=== PATIENT | female | born 2000 | race Caucasian/White ===

== ENCOUNTER 2021-03-05 00:02 | Observation (INO) | payer OTHER, MEDICAID ==
[~2021-03-05] VITALS: Ht 157.5 cm; Wt 76.8 kg
--- NOTE | ~2021-03-05 | CON ---
[address] [address] CONSULTATION Name: JJ GERONIMO Room: [address] Keke Morales#: [id number] Admission: 03/05/21 Attend Phys: Jammie Umana Discharge: 03/05/21 Date of : [birth year] Report #: [id number] THIS REPORT FOR: cc: FAM - No family physician/PCP FAM - No family physician/PCP Ziggy Sy MD ~ DATE OF CONSULTATION: 03/05/2021 HISTORY OF PRESENT ILLNESS: This is a 20-year-old female patient who was evaluated by me for seizure. The patient is difficult to evaluate because it looks like she keeps changing her history especially in relation to her alcohol and drug abuse. The history she gave me is that she drinks alcohol on a regular basis. From last 3-4 months, she drank at least half a pint of hard liquor every day. Then, she did not drink any alcohol on Saturday and . When I asked her why she did not do any alcohol and dosage, she did not give me an answer. On , she said she was at home. She was with her 2-year-old son, then she started shaking. Her cousin who was at home noticed her shaking and called 911. She was taken to [facility] and I do not know what workup was done because I do not have the records, but the patient says his CT scan of the head was done in the Emergency Room note indicates the same. It looks like she was dismissed and she had made an appointment with her family doctor. She said she did not drink any alcohol before and from all indication that looks like alcohol withdrawal seizure. Then, she tells me that she took 1 dose of Adderall. This was from the prescription of her friend. She thinks the dose was 40 mg and she took only 1 pill. That when she did between and last night. She tells me that she did not drink any alcohol last night, but that is not the history she told other physicians including Emergency Room and the admitting doctor. To me, she tells me these are the only 2 seizures she had, but other doctors she had told something else. To me, she tells me she did not have any other drugs, but this patient as marijuana positive and she has told other people that she uses marijuana on a regular basis. She was also opioid positive, but everybody including me she has told me that she does not know how opioid got into her system. She is here and she is doing alright and she has not had any further seizures. REVIEW OF SYSTEMS: According to the patient, the patient is healthy. She is not on any medications including any control pills. She says her last period was at the beginning of this month. The history is conflicting, but some of the history does indicate that she has a history of methamphetamine abuse also. To me, she denies that and she says that instead she took Adderall. That makes [place] [address] CONSULTATION Name: JJ GERONIMO Room: [address] Keke Morales#: [id number] Admission: 03/05/21 Attend Phys: Jammie Umana Discharge: 03/05/21 Date of : [birth year] Report #: [id number] patient further. She denies any other eye, ENT symptoms. She is not complaining of any cardiac, respiratory, GI, , musculoskeletal, constitutional, dermatological, hematological, psychiatric, throat, allergic symptom associated with present symptomatology. She tells me she walked to the bathroom and did not have any difficulty walking. She said her balance was reasonable. Past medical history what history she gave me. She said that she had only 2 seizures; 1 on ; 1 on last night. FAMILY HISTORY: Unremarkable. SOCIAL HISTORY: She has a history of heavy alcohol use, smoking cigarette and from the record smoking marijuana on a regular basis. PHYSICAL EXAMINATION: The patient's examination indicates she is alert and responsive. Her speech, concentration is unremarkable. She believes her memory is at her baseline and she is able to relate her history reasonably well. She appeared to be alert and oriented. Cranial nerve examination appears unremarkable. I did not see any nystagmus. I could not look at the patient's fundus. She moves both upper and lower extremities symmetrically. She did reasonably well with position sense. Her knee jerks were somewhat diminished, but her both plantars are mute. There is no meningeal sign. Cardiac examination does not show any abnormality. There is no carotid bruit. There is no thyroid mass. Her pulses appeared to be palpable in the lower extremity. There is no edema there. Her blood pressure is 98/56, it has been running low since she has been here. Pulse is 93, respirations 17, temperature is 97.7. LABORATORY DATA: Her white count is normal. It was normal when she came in to. She is not anemic. Her GFR was 91. Her magnesium was normal. Calcium was trace low at 8.1. No imaging study was done here. IMPRESSION: 1. It looks like the first seizure was alcohol withdrawal seizure. Of note show but the second seizure. She has multiple drugs in her system including amphetamines and that may have contributed to her seizure. She may be even developing alcohol-related seizures at this stage. I discussed with the patient that she needs further workup. She needs to stay in the hospital. We will look at her EEG. She needs an MRI of the brain. She needs alcohol withdrawal protocol. She is pretty adamant that she is going home today. She is competent to make her decision and she understands the dire consequences of leaving against medical advice, but looks like that is what she wants to do. I have asked the nurses to contact the hospitalist and see what they want [place] [address] CONSULTATION Name: JJ GERONIMO [place] Room: [address] Keke Morales#: [id number] Admission: 03/05/21 Attend Phys: Jammie Umana Discharge: 03/05/21 Date of : [birth year] Report #: [id number] I told her that even if she leaves AMA, she should stay under supervision at least for the next several days. She should take strict seizure precautions including not working near moving machinery on heights or any place where she can hurt herself if she have a seizure. I discussed with her the loss regarding driving and I told her that she cannot drive at least for 6 months. I discussed with her that she needs to stop drinking alcohol altogether and she needs to stop using any street drugs or any prescription drugs, which can be epileptiform. She needs further workup and she needs to stay in the hospital, but she wants to leave AMA and she appeared to be competent to make a decision and I am not sure what else can be done. I did discuss with her the option is there that we can put her on anticonvulsants, but she does not want to go on anticonvulsant either. That is not a substitute for avoiding alcohol and other drugs, but that will be in addition to do that. She said she can stop all those medications, but from what history I get from the chart and from her evasive history in that regard, I am not sure she will do that, but I am not sure what else can be done if she wants to go and she understands the consequences of not listening to the medical advice and she is competent to make her decision. Nurses will call the hospitalist and talked to them what to do about that. By: 1514 [id number] Sy MD /nt
--- NOTE | ~2021-03-05 | EEG ---
[address] [address] EEG STUDY REPORT Name: JJ GERONIMO Room: [address] Keke Morales#: [id number] Admission: 03/05/21 Attend Phys: Jammie Umana Discharge: 03/05/21 Date of : [birth year] Report #: [id number] THIS REPORT FOR: cc: FAM - No family physician/PCP FAM - No family physician/PCP Ziggy Sy MD ~ DATE OF SERVICE: 03/05/2021 This patient is being evaluated for seizure. Virtually, all the patient's EEG was recorded when the patient was asleep. Therefore, background activity is difficult to determine, but it appeared to be up to 11 Hz and 30 microvolts. During the sleep, bilateral slowing and vertex sharp waves are present. Photic stimulation is unremarkable. Throughout the record, no active epileptiform activity was noticed. IMPRESSION: This patient's EEG does not demonstrate any active epileptiform activity. It might be mentioned that EEG can be normal in a patient with seizure disorder. Thank you very much for this referral. By: [id number] Sy MD /nt
[2021-03-05 00:06] VITALS: BP 133/48
[2021-03-05 00:43] LABS: ABSOLUTE BASOPHILS 0.1 thou/uL (0.0-0.2); ABSOLUTE EOSINOPHILS 0.1 thou/uL (0.0-0.7); ABSOLUTE LYMPHOCYTES 2.5 thou/uL (0.8-5.3); ABSOLUTE MONOCYTES 0.6 thou/uL (0.0-1.2); ABSOLUTE NEUTROPHILS 5.1 thou/uL (1.6-8.1); BASOPHILS 0.7 %; EOSINOPHILS 1.2 %; HEMATOCRIT 40.8 % (37.0-47.0); LYMPHOCYTES 30.2 %; MCH 30.2 pg (26.0-34.0); MCHC 34.3 g/dL (28.0-37.0); MCV 88.2 fL (80.0-100.0); MONOCYTES 7.6 %; MPV 7.7 fl. (7.2-11.1); NUCLEATED RBCS 0 /100WBC; PLATELET COUNT* 249 thou/uL (150-400); POLYS 60.3 %; RBC 4.63 mil/uL (4.20-5.00); RDW-CV 13.5 % (10.5-14.5); WBC 8.4 thou/uL (4.0-11.0)
[2021-03-05 00:48] LABS: CALCIUM 8.6 mg/dL (8.5-10.1); CREATININE 0.9 mg/dL (0.6-1.3); POTASSIUM 4.2 mmol/L (3.5-5.1)
[2021-03-05 00:53] LABS: ALBUMIN 3.4 g/dL (3.4-5.0); TOTAL BILIRUBIN 0.2 mg/dL (<0.1-1.0); TOTAL PROTEIN 7.3 g/dL (6.4-8.2)
[2021-03-05 01:15] LABS: URINE BILIRUBIN NEGATIVE (Negative); URINE BLOOD NEGATIVE (Negative); URINE CLARITY CLEAR; URINE COLOR YELLOW; URINE GLUCOSE-RANDOM NEGATIVE (Negative); URINE KETONES NEGATIVE (Negative); URINE LEUKOCYTES-REFLEX NEGATIVE (Negative); URINE NITRITE-REFLEX NEGATIVE (Negative); URINE PROTEIN 1+ (Negative); URINE SPECIFIC GRAVITY >= 1.030 (1.005-1.030); URINE UROBILINOGEN 0.2 E.U./dl (0.2-1.0)
[2021-03-05 01:24] LABS: AMP/METHAMP POSITIVE (Negative); BARBITURATES Negative (Negative); BENZODIAZEPINES Negative (Negative); COCAINE Negative (Negative); METHADONE Negative (Negative); OPIATES POSITIVE (Negative); PCP Negative (Negative); THC POSITIVE (Negative)
[2021-03-05 03:07] VITALS: BP 106/72
[2021-03-05 03:20] VITALS: BP 95/51
[2021-03-05 05:18] VITALS: BP 110/62
--- NOTE | 2021-03-05 08:05 | NUR ---
PATIENT ADMITTED TO ROOM 224 FROM THE ER AT APPROXIMATELY 0315 FROM THE ER. VSS ON RA. PATIENT SLEEPING AND VERY HARD TO WAKE UP. PATIENT NOT ANSWERING ADMISSION QUESTIONS FOR NURSE. IV FLUIDS STARTED. IV IN RIGHT AC-NS @ 100ML/HR. SEIZURE PRECAUTIONS IN PLACE AND SUCTION IN ROOM. FALL PRECAUTIONS IN PLACE AND HOURLY ROUNDS MADE. WILL CONTINUE WITH PLAN OF CARE AND NURSING TO MONITOR.
[2021-03-05 08:26] VITALS: BP 98/55
[2021-03-05 12:00] VITALS: BP 98/56
[2021-03-05 12:05] LABS: ABSOLUTE EOSINOPHILS 0.1 thou/uL (0.0-0.7); ABSOLUTE MONOCYTES 0.5 thou/uL (0.0-1.2); ABSOLUTE NEUTROPHILS 5.6 thou/uL (1.6-8.1); BASOPHILS 0.3 %; EOSINOPHILS 1.3 %; HEMATOCRIT 37.8 % (37.0-47.0); HEMOGLOBIN 12.8 gm/dL (12.0-15.0); LYMPHOCYTES 23.9 %; MCH 30.3 pg (26.0-34.0); MCHC 33.9 g/dL (28.0-37.0); MCV 89.3 fL (80.0-100.0); MONOCYTES 6.5 %; MPV 7.6 fl. (7.2-11.1); NUCLEATED RBCS 0 /100WBC; PLATELET COUNT* 214 thou/uL (150-400); RBC 4.23 mil/uL (4.20-5.00); RDW-CV 13.7 % (10.5-14.5); WBC 8.3 thou/uL (4.0-11.0)
--- NOTE | 2021-03-05 12:12 | EKG ---
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
[2021-03-05 12:22] LABS: ALBUMIN 2.8 g/dL (3.4-5.0); CALCIUM 8.1 mg/dL (8.5-10.1); CREATININE 0.8 mg/dL (0.6-1.3); MAGNESIUM 1.8 mg/dL (1.8-2.4); PHOSPHORUS* 3.3 mg/dL (2.5-4.9); TOTAL BILIRUBIN 0.1 mg/dL (<0.1-1.0); TOTAL PROTEIN 6.1 g/dL (6.4-8.2)
[2021-03-05 12:25] LABS: PROTIME 10.2 Seconds (9.20-11.50)
--- NOTE | 2021-03-05 16:07 | NUR ---
pt requests to leave AMA. Neurologist at bedside told pt she should stay, recive 48 hours monitoring after her seizure and get MRI of brain. Pt refused, stated she has follow up appt novemeber 7 with her PCP, will let PCP know about our referrals. Dr Contreras notified of this. Stated for this RN to emphasize need for MRI soon. This RN did so. Pt verbalized understanding of risks/benefits of leaving AMA. Pts boyfriend here to pick pt up. IV, Tele removed. Pt wheeled out to boyfriends car.
--- NOTE | 2021-03-05 16:09 | NUR ---
NORA paper signed by
== END 2021-03-05 16:30 | disposition left against medical advice (07) ==
LOC: M.ERS 00:02 → M.TBA-ER 01:47 → M.2W 03:18
PROVIDERS: Emergency Medicine; ADMIT Internal Medicine; ATTEND Internal Medicine
DX: R56.9 Unspecified convulsions (principal); F10.10 Alcohol abuse, uncomplicated; F15.10 Other stimulant abuse, uncomplicated; R55 Syncope and collapse; F11.10 Opioid abuse, uncomplicated; Z88.5 Allergy status to narcotic agent; Z79.899 Other long term (current) drug therapy